=== PATIENT | female | born 1935 | race Caucasian/White ===

== ENCOUNTER 2019-01-23 15:33 | Inpatient (IN) ==
[2019-01-23] MEDS ORDERED: 0.9 % Sodium Chloride 1,000 ML IVC ONE (15:49)
--- NOTE | 2019-01-23 15:49 | Emergency Department Note ---
Disposition Clinical Impression: Delirium due to general medical condition Altered mental status Qualifiers: Altered mental status type: unspecified Qualified Code(s): R41.82 - Altered mental status, unspecified Disposition: Admitted As Inpatient Condition: Fair Referrals: Randall Pete MD [Primary Care Provider] - Forms: ED Satisfaction Letter Time of Disposition: 17:25 Altered Mental Status HPI - General Chief Complaint: ED Altered Mental Status Stated Complaint: ams Time Seen by Provider: 01/23/19 15:34 Source: patient, family Mode of arrival: EMS Limitations: no limitations Nursing Notes Reviewed: Yes Vital Signs Reviewed: Yes - History of Present Illness HPI Narrative: Patient is an 83-year-old female who is presenting with altered mental status. EMS with family members at bedside. Patient with known history of pacemaker secondary to bradycardia, hypertension, hyperlipidemia and neck pain. Patient was seen by primary care provider yesterday, was prescribed baclofen 10 mg secondary to neck strain and pain. Yesterday, patient took a half a tablet in the afternoon, was mentating appropriately, then called her daughter who recommended she take 1 further tablet. This is a total of 15 mg yesterday. Patient lives alone and was at home by herself overnight. Family member showed up at 8:00 this morning, and noted that the patient was very sleepy and somewhat confused. She had no focal weakness, numbness or tingling. No reported falls. She is on a blood thinner. Per her daughter, when she arrived around 1300, she became very concerned as the patient was very drowsy and confused. EMS was called to bring her to the ER for further evaluation. Patient currently denies any pain. No recent fevers or chills, cough or urinary symptoms. She denies any chills chest pain or shortness of breath. She denies any recent falls. Per family known was with her overnight. Patient has never been on this medication before. - Related Data Home Medications Medication Instructions Recorded Confirmed ALPRAZolam [Xanax 0.5 MG Tablet] 0.5 mg PO BID PRN 08/06/16 08/06/16 Diltiazem HCl [Cardizem Cd] 360 mg PO QAM 08/06/16 08/06/16 Gabapentin [Neurontin] 100 mg PO BID 08/06/16 08/06/16 Glimepiride [Amaryl] 1 mg PO QPM 08/06/16 08/06/16 Baclofen [Lioresal] 10 mg PO TID PRN 01/23/19 01/23/19 Citalopram Hydrobromide 10 mg PO DAILY 01/23/19 01/23/19 [Citalopram HBr] Folic Acid 0.8 mg PO DAILY 01/23/19 01/23/19 Losartan/Hydrochlorothiazide 1 each PO DAILY 01/23/19 01/23/19 [Losartan-Hctz 100-25 mg Tab] Lovastatin [Mevacor] 20 mg PO QPM 01/23/19 01/23/19 Rivaroxaban [Xarelto] 15 mg PO QPM 01/23/19 01/23/19 Allergies Allergy/AdvReac Type Severity Reaction Status Date / Time atenolol Allergy Rash Verified 10/23/18 10:11 Warfarin AdvReac Severe Weakness Verified 10/23/18 10:11 Review of Systems: In addition to that documented in the HPI above, the additional ROS was obtained: General: Denies fever. Denies chills. Denies weight loss. Denies behavioral change. Eyes: Denies visual changes. ENT: Denies nasal congestion. Denies sore throat. Denies hearing change. Cardio: Denies chest pain. Denies palpitations. Respiratory: Denies cough. Denies shortness of breath. Denies wheezing. GI: Denies nausea, Denies vomiting, or diarrhea. Denies hematochezia denies melena. Denies abdominal pain. : Denies dysuria, hematuria, or urinary retention MSK: Denies back pain. Denies joint swelling. Neuro: Affirms confusion.. Denies numbness or tingling. Denies focal weakness. Denies headache. Denies loss of consciousness. Psych: Denies mood changes. All systems ED: reviewed and negative except as stated. Review of Systems: As Per HPI Past Medical History - Past Medical History Attestation: Yes The following information was validated with the patient. Source: patient Medical history: Reports: hypertension Surgical history: Reports: cholecystectomy Psychiatric history: Reports: anxiety - Social History Smoking Status: Never smoker Smokeless Tobacco Status: No Alcohol use: Reports: none Drug use: Reports: none Physical Exam - General General appearance: alert, in no apparent distress - Head Head exam: atraumatic, normocephalic, normal inspection - Eye Eye exam: Present: normal appearance, PERRL, EOMI - ENT ENT exam: normal exam, normal oropharynx, mucous membranes moist - Neck Neck exam: Present: normal inspection, full ROM, trachea midline - Chest Chest inspection: Present: normal inspection, symmetric chest wall rise - Respiratory Respiratory exam: Present: normal lung sounds bilaterally - Cardiovascular Cardiovascular exam: Present: regular rate, normal rhythm, normal heart sounds - Abdominal Exam Abdominal exam: Present: soft, Non-Tender. Absent: tenderness, distention, guarding, rebound, rigidity - Extremities Exam Extremities exam: Present: normal inspection, full ROM. Absent: tenderness, pedal edema - Expanded Lower Extremity Exam Neurovascular/Tendon exam: Absent: motor deficit, sensory deficit, tendon deficit - Back Exam Back exam: Present: normal inspection, paraspinal tenderness. Absent: muscle spasm, vertebral tenderness, rashes - Expanded Neurological Exam Patient oriented to: Present: person, place. Absent: time Speech: Present: fluid speech Cranial nerves: EOM function (II, III, IV, ): Normal, facial sensation (V): Normal, facial palsy (VII): Normal, spinal accessory function (XI): Normal, tongue deviation (XII): Normal Cerebellar function: finger to nose: Normal Motor strength - LUE: 4/5 Motor strength - RUE: 4/5 Motor strength - LLE: 4/5 Motor strength - RLE: 4/5 Upper motor neuron exam: pronator drift: Absent bilaterally Sensory exam upper extremity: light touch: Normal Sensory exam lower extremity: light touch: Normal Coma Scale Eye Opening: Spontaneous Coma Scale Motor Response: Obeys Commands Coma Scale Verbal Response: Confused Coma Scale Total: 14 - Psychiatric Psychiatric exam: Present: other (Somewhat somnolent during the examination, but readily opens her eyes trend the conversation.) - Skin Skin exam: Present: warm Course Vital Signs Temperature 98.8 F 01/23/19 15:47 Pulse Rate 62 01/23/19 15:47 Respiratory Rate 18 01/23/19 15:47 Blood Pressure 153/60 01/23/19 15:47 O2 Sat by Pulse Oximetry 92 01/23/19 15:47 Temperature 98.8 F 01/23/19 15:47 Pulse Rate 68 01/23/19 17:40 Respiratory Rate 18 01/23/19 17:40 Blood Pressure 133/59 01/23/19 17:40 O2 Sat by Pulse Oximetry 97 01/23/19 17:40 Oxygen Delivery Oxygen Delivery Nasal Cannula Altered Mental Status - [facility] Narrative Medical decision making narrative: Patient is an 83-year-old female presenting with altered mental status. On examination, pt is alert and oriented 2 with a GCS of 14. Concern for medication axonal overdose with baclofen 15 mg. Patient is somewhat somnolent during examination, but is easily arousable and follows commands. Vitals are as mostly within normal limits, patient did become hypoxic on room air at 87%, on 2 L she went up to about 97%. She does not wear oxygen at home. Concern for intracranial etiology versus infection versus medication overdose. Last known well was greater than 18 hours ago, with no focal neurological changes, no focal weakness or numbness or tingling. Patient is not a TPA candidate. CBC, BMP as well as troponin and EKG and chest x-ray were performed. Urinalysis shows no acute infection. Chest x-ray appears stable and unchanged. CT of the head as well as the cervical spine showed no acute intracranial changes or sign of acute fracture. CBC is relatively unremarkable. Hemoglobin stable. BMP does show acute kidney injury with history of chronic kidney disease. She was given 1 L of fluids while here in the ER. Patient has otherwise had an unchanged neurological exam while here in the ER. Patient will be admitted for further observation and evaluation. Family agrees with disposition. Hospitalist has accepted the patient. - Medical Records Medical records reviewed: Yes I reviewed the patient's medical records. - Lab Data Lab results reviewed: Yes I reviewed the patient's lab results. Result diagrams: 01/23/19 16:30 01/23/19 16:30 Lab Results 01/23/19 01/23/19 01/23/19 Range/Units 16:30 16:30 16:30 WBC 11.9 H (4.3-11.1) K/mcL RBC 4.47 (3.82-4.97) M/mcL Hgb 13.6 (11.5-15.4) g/dL Hct 40.0 (35.3-44.9) % MCV 89.5 (83.0-100.0) fL MCH 30.4 (28.0-33.3) pg MCHC 34.0 (31.6-35.5) g/dL RDW 12.6 (11.5-14.5) % Plt Count 252 (140-400) K/mcL MPV 10.6 (9.4-12.4) fL Immature Gran % 0.5 (0-4) % Seg Neutrophils % 88.4 % Lymphocytes % 2.5 % Monocytes % 8.1 % Eosinophils % 0.3 % Basophils % 0.2 % Neutrophils # 10.5 H (1.6-8.9) K/mcL Lymphocytes # 0.3 L (0.6-4.6) K/mcL Monocytes # 1.0 (0.0-1.3) K/mcL Eosinophils # 0.0 (0.0-0.6) K/mcL Basophils # 0.0 (0.0-0.2) K/mcL Sodium 138 (136-145) mEq/L Potassium 3.1 L (3.5-5.1) mEq/L Chloride 102 (98-107) mEq/L Carbon Dioxide 26 (23-29) mEq/L BUN 37 H (8-23) mg/dL Creatinine 2.29 H (0.60-1.20) mg/dL Est GFR ( Amer) 25 L (> 60) Est GFR (Non-Af Amer) 20 L (> 60) BUN/Creatinine Ratio 16 (6-26) Glucose 201 H (70-105) mg/dL Calculated Osmolality 300 (280-300) Calcium 9.6 (8.6-10.3) mg/dL Total Bilirubin 0.8 (0.3-1.0) mg/dL Direct Bilirubin 0.3 H (0.0-0.2) mg/dL Indirect Bilirubin 0.5 (0.0-1.2) mg/dL AST 30 (13-39) Units/L ALT 27 (7-52) Units/L Alkaline Phosphatase 129 H (34-104) Units/L Troponin I < 0.03 (< 0.04) ng/mL Serum Total Protein 7.8 (6.4-8.9) g/dL Albumin 3.9 (3.5-5.7) g/dL Globulin 3.9 H (2.4-3.5) g/dL Albumin/Globulin Ratio 1.0 L (1.1-2.2) Urine Color Yellow (Yellow) Urine Clarity Clear (Clear) Urine pH 5.5 (5.0-8.0) pH Units Ur Specific [place] < 1.005 L (1.010-1.025) Urine Protein Trace (Neg-Trace) mg/dL Urine Glucose (UA) Normal (Normal) mg/dL Urine Ketones Negative (Negative) mg/dL Urine Blood Negative (Negative) Urine Nitrite Negative (Negative) Urine Bilirubin Negative (Negative) Urine Urobilinogen Normal (Normal) mg/dL Ur Leukocyte Esterase Negative (Negative) Ur Culture Indicated? NO (NO) Stool Occult Bld Scrn (Negative) 01/23/19 Range/Units 17:04 WBC (4.3-11.1) K/mcL RBC (3.82-4.97) M/mcL Hgb (11.5-15.4) g/dL Hct (35.3-44.9) % MCV (83.0-100.0) fL MCH (28.0-33.3) pg MCHC (31.6-35.5) g/dL RDW (11.5-14.5) % Plt Count (140-400) K/mcL MPV (9.4-12.4) fL Immature Gran % (0-4) % Seg Neutrophils % % Lymphocytes % % Monocytes % % Eosinophils % % Basophils % % Neutrophils # (1.6-8.9) K/mcL Lymphocytes # (0.6-4.6) K/mcL Monocytes # (0.0-1.3) K/mcL Eosinophils # (0.0-0.6) K/mcL Basophils # (0.0-0.2) K/mcL Sodium (136-145) mEq/L Potassium (3.5-5.1) mEq/L Chloride (98-107) mEq/L Carbon Dioxide (23-29) mEq/L BUN (8-23) mg/dL Creatinine (0.60-1.20) mg/dL Est GFR ( Amer) (> 60) Est GFR (Non-Af Amer) (> 60) BUN/Creatinine Ratio (6-26) Glucose (70-105) mg/dL Calculated Osmolality (280-300) Calcium (8.6-10.3) mg/dL Total Bilirubin (0.3-1.0) mg/dL Direct Bilirubin (0.0-0.2) mg/dL Indirect Bilirubin (0.0-1.2) mg/dL AST (13-39) Units/L ALT (7-52) Units/L Alkaline Phosphatase (34-104) Units/L Troponin I (< 0.04) ng/mL Serum Total Protein (6.4-8.9) g/dL Albumin (3.5-5.7) g/dL Globulin (2.4-3.5) g/dL Albumin/Globulin Ratio (1.1-2.2) Urine Color (Yellow) Urine Clarity (Clear) Urine pH (5.0-8.0) pH Units Ur Specific [place] (1.010-1.025) Urine Protein (Neg-Trace) mg/dL Urine Glucose (UA) (Normal) mg/dL Urine Ketones (Negative) mg/dL Urine Blood (Negative) Urine Nitrite (Negative) Urine Bilirubin (Negative) Urine Urobilinogen (Normal) mg/dL Ur Leukocyte Esterase (Negative) Ur Culture Indicated? (NO) Stool Occult Bld Scrn Negative (Negative) - Radiology Data Radiology results reviewed: Yes I reviewed the patient's radiology results. Chest X-Ray 01/23/19 15:49 IMPRESSION: No acute abnormality. D/ / Khalif Urbano MD / Khalif Urbano MD Interpreting Provider: Khalif Urbano MD Cervical Spine CT 01/23/19 15:50 IMPRESSION: No acute abnormality of the cervical spine. Degenerative changes. D/ / Yessica Madison MD / Yessica Madison MD Interpreting Provider: Yessica Madison MD Head CT 01/23/19 15:50 IMPRESSION: No acute intracranial abnormality. D/ / Yessica Madison MD / Yessica Madison MD Interpreting Provider: Yessica Madison MD - EKG Data EKG attestation: Yes I reviewed and interpreted this EKG. EKG results narrative: EKG performed at 6 and 25 with ventricular rate of 60, patient is ventricularly paced, without acute changes. TPA Checklist - LKW: 3-4.5 hrs Add. Warnings/Precautions Patient/family understanding: The patient/family members have been counseled and understood the risk, benefit, and alternatives of treatment.
--- NOTE | 2019-01-23 16:22 | Emergency Department Note ---
Disposition Clinical Impression: Delirium due to general medical condition, Altered mental status Disposition: Still a Patient Forms: ED Satisfaction Letter Time of Disposition: 16:24 General Adult HPI - General Chief complaint: ED Altered Mental Status Stated complaint: ams Time Seen by Provider: 01/23/19 15:34 Source: patient Limitations: no limitations Nursing Notes Reviewed: Yes Vital Signs Reviewed: Yes - History of Present Illness HPI Narrative: Attestation note: Patient was seen with the emergency medicine resident/nurse practitioner/physician behavioral assistant/transitional resident/medical student: Dr. COCO MONTOYA. I was present for the significant portions of the performance and interpretation of procedures and EKGs. I have personally performed a face to face evaluation on this patient. I have reviewed and agree with history and physical examination patient management and disposition. 83-year-old female had atraumatic pain, patient was prescribed baclofen for atraumatic neck pain. Patient is now awake and alert 2 family members she was getting increasing sleepy and slightly disoriented and altered here for further evaluation. Patient has been on iron but was a dark stool during our visit are evaluation being sent for fecal occult blood testing. Patient's no prior history of GI bleed. This been recent antibiotics no fevers or chills no trauma. Patient be worked up for altered mental status. INR differential is unintentional overdose of baclofen with the somnolence secondary to that. Patient can EKG screening labs head CT chest x-ray urinalysis admi ssion anticipated. Providing 30 minutes of critical care service for this patient. Disposition pending Pain Scale: 0 - Related Data Home Medications Medication Instructions Recorded Confirmed ALPRAZolam [Xanax 0.5 MG Tablet] 0.5 mg PO BID PRN 08/06/16 08/06/16 Acetaminophen [Tylenol] 650 mg PO Q6H PRN 08/06/16 08/06/16 Cholecalciferol (Vitamin D3) 5,000 unit PO QPM 08/06/16 08/06/16 [Vitamin D3] Diltiazem HCl [Cardizem Cd] 360 mg PO QAM 08/06/16 08/06/16 Ferrous Sulfate [Iron] 325 mg PO BID 08/06/16 08/06/16 Folic Acid 1 mg PO QAM 08/06/16 08/06/16 Gabapentin [Neurontin] 100 mg PO BID 08/06/16 08/06/16 Glimepiride [Amaryl] 1 mg PO QPM 08/06/16 08/06/16 Losartan/HCTZ [Hyzaar 50-12.5 1 tab PO QAM 08/06/16 08/06/16 Tablet] Lovastatin 10 mg PO HS 08/06/16 08/06/16 Polyethylene Glycol 3350 [MiraLAX] 17 gm PO QAM 08/06/16 08/06/16 Allergies Allergy/AdvReac Type Severity Reaction Status Date / Time atenolol Allergy Rash Verified 10/23/18 10:11 Warfarin AdvReac Severe Weakness Verified 10/23/18 10:11 Past Medical History - Past Medical History Medical history: Reports: hyperlipidemia, hypertension Surgical history: Reports: cholecystectomy Psychiatric history: Reports: anxiety - Social History Smoking Status: Never smoker Smokeless Tobacco Status: No Alcohol use: Reports: none Drug use: Reports: none Physical Exam - General Limitations: no limitations General appearance: in no apparent distress Course Vital Signs Temperature 98.8 F 01/23/19 15:47 Pulse Rate 62 01/23/19 15:47 Respiratory Rate 18 01/23/19 15:47 Blood Pressure 153/60 01/23/19 15:47 O2 Sat by Pulse Oximetry 92 01/23/19 15:47 Temperature 98.8 F 01/23/19 15:47 Pulse Rate 62 01/23/19 15:47 Respiratory Rate 18 01/23/19 15:47 Blood Pressure 153/60 01/23/19 15:47 O2 Sat by Pulse Oximetry 92 01/23/19 15:47 Oxygen Delivery Oxygen Delivery Room Air
[2019-01-23 17:04] LABS: Bilirubin,Urine Negative (Negative); Blood,Urine Negative (Negative); Clarity,Urine Clear (Clear); Color,Urine Yellow (Yellow); Glucose,Urine (UA) Normal (Normal); Ketones,Urine Negative (Negative); Leukocyte Esterase,Urine Negative (Negative); Nitrite,Urine Negative (Negative); PH,Urine 5.5 pH Units (5.0-8.0); Protein,Urine Trace mg/dL (Neg-Trace); Specific Gravity,Urine < 1.005 (1.010-1.025); Urobilinogen,Urine Normal (Normal)
[2019-01-23 17:08] LABS: Basophils % 0.2 %; Eosinophils % 0.3 %; Hemoglobin 13.6 g/dL (11.5-15.4); Immature Granulocytes % 0.5 % (0-4); Lymphocytes # 0.3 K/mcL (0.6-4.6); Lymphocytes % 2.5 %; Mean Corpuscular Hemoglobin 30.4 pg (28.0-33.3); Mean Corpuscular Volume 89.5 fL (83.0-100.0); Mean Platelet Volume 10.6 fL (9.4-12.4); Monocytes % 8.1 %; Neutrophils # 10.5 K/mcL (1.6-8.9); Platelet Count 252 K/mcL (140-400); Red Blood Count 4.47 M/mcL (3.82-4.97); Red Cell Distribution Width 12.6 % (11.5-14.5); Segmented Neutrophils % 88.4 %; White Blood Count 11.9 K/mcL (4.3-11.1)
[2019-01-23 17:32] LABS: Alanine Aminotransferase 27 Units/L (7-52); Albumin 3.9 g/dL (3.5-5.7); Alkaline Phosphatase 129 Units/L (34-104); Aspartate Amino Transferase 30 Units/L (13-39); BUN/Creatinine Ratio 16 (6-26); Bilirubin,Direct 0.3 mg/dL (0.0-0.2); Bilirubin,Indirect 0.5 mg/dL (0.0-1.2); Bilirubin,Total 0.8 mg/dL (0.3-1.0); Blood Urea Nitrogen 37 mg/dL (8-23); Calcium 9.6 mg/dL (8.6-10.3); Carbon Dioxide 26 mEq/L (23-29); Chloride 102 mEq/L (98-107); Globulin 3.9 g/dL (2.4-3.5); Glucose 201 mg/dL (70-105); Osmolality,Calculated 300 (280-300); Potassium 3.1 mEq/L (3.5-5.1); Sodium 138 mEq/L (136-145); Total Protein 7.8 g/dL (6.4-8.9); Troponin I < 0.03 ng/mL (< 0.04); eGFR For African Americans 25 (> 60); eGFR For Non-African Americans 20 (> 60)
[2019-01-23] MEDS ORDERED: Naloxone 0.4 MG/ML INJ IVP PRN (17:41)
--- NOTE | 2019-01-23 17:41 | Internal Med History&Physical ---
Date of Encounter: 01/23/19 Time of Encounter: 17:50 Internal Medicine - H&P: HPI Chief complaint: Increased somnolence Admitted From: Emergency Dept Plans for Post Hospital Care: Home History of present illness: Ms. Virk is a 83 year old female patient with history of diabetes, hypertension, chronic kidney disease stage III who was brought into the ER due to increased somnolence. She had been placed on baclofen recently due to neck spasm. She took this medication for couple of days. Her initial dose was half a tablet (10 mg tablet) the day before yesterday which she tolerated well. After that she took 1 full tablet yesterday after which she has been increasingly somnolent. She is still very somnolent today. She is difficult to awake. She is not able to provide much history and history has therefore been obtained by her granddaughter who is at her bedside. Patient has been otherwise healthy and at baseline is able to maintain conversation well. No other recent changes to medications. No diarrhea reported. No nausea or vomiting. Past Med Surg Social Fam HX - Past Medical History Medical history: hyperlipidemia, hypertension Additional medical history: RLS, neuropathy Psychiatric history: anxiety - Past Surgical History Surgical History: cholecystectomy Additional surgical history: ovary removed, mastectomy, sinus sx - Social History Smoking Status: Never smoker Smokeless Tobacco Status: No Alcohol use: none Drug use: none - Family History Mother Family Member Ethnicity: Non- Living Status: Hx Family Cardiac Disorders: Yes (received pacemaker) Father Family Member Ethnicity: Non- Living Status: Hx Family Cancer: Yes Hx Family GI Disorders: Yes Internal Medicine - H&P: Meds ALPRAZolam [Xanax 0.5 MG Tablet] 0.5 mg PO BID PRN 08/06/16 [History] Diltiazem HCl [Cardizem Cd] 360 mg PO QAM 08/06/16 [History] Gabapentin [Neurontin] 100 mg PO BID 08/06/16 [History] Glimepiride [Amaryl] 1 mg PO QPM 08/06/16 [History] Baclofen [Lioresal] 10 mg PO TID PRN 01/23/19 [History] Citalopram Hydrobromide [Citalopram HBr] 10 mg PO DAILY 01/23/19 [History] Folic Acid 0.8 mg PO DAILY 01/23/19 [History] Losartan/Hydrochlorothiazide [Losartan-Hctz 100-25 mg Tab] 1 each PO DAILY 01/23/19 [History] Lovastatin [Mevacor] 20 mg PO QPM 01/23/19 [History] Rivaroxaban [Xarelto] 15 mg PO QPM 01/23/19 [History] Allergy/AdvReac Type Severity Reaction Status Date / Time atenolol Allergy Rash Verified 10/23/18 10:11 Warfarin AdvReac Severe Weakness Verified 10/23/18 10:11 ROS unobtainable: due to mental status All Systems PM: A 10-system review of systems was performed and is negative for pertinent findings except as documented above in the HPI. - Constitutional Vitals: Temp Pulse Resp BP Pulse Ox 98.8 F 62 16 137/56 92 01/23/19 15:47 01/23/19 15:47 01/23/19 16:19 01/23/19 16:19 01/23/19 15:47 Exam: General: Patient is very somnolent Head: atraumatic, normocephalic, ENT: Mucous membranes moist Eye: normal appearance, PERRL, no scleral icterus, no conjunctival injection Neck: normal inspection, trachea midline, full ROM, no carotid bruits Chest: normal inspection, symmetric chest rise Respiratory: Good respiratory effort. Normal breath sounds. No wheezing or crackles. Cardiovascular: Regular rate and rhythm. s1 and s2 normal No clicks, rubs, gallops, or murmurs. No pedal edema Abdomen: Abdomen is soft, nontender. Bowel sounds are present Musculoskeletal: Spontaneously moving all extremities Skin: warm, dry, intact. Neuro: Unable to perform at this time due to patient's mental status Psych: Unable to assess at this time due to patient's mental status Internal Med - H&P Results - Labs CBC & Chem 7: 01/23/19 16:30 01/23/19 16:30 Labs: Short CBC 01/23/19 Range/Units 16:30 WBC 11.9 H (4.3-11.1) K/mcL Hgb 13.6 (11.5-15.4) g/dL Hct 40.0 (35.3-44.9) % Plt Count 252 (140-400) K/mcL Neutrophils # 10.5 H (1.6-8.9) K/mcL BMP 01/23/19 16:30 Sodium 138 Potassium 3.1 L Chloride 102 Carbon Dioxide 26 BUN 37 H Creatinine 2.29 H Glucose 201 H Calcium 9.6 Cardiac Enzymes 01/23/19 Range/Units 16:30 Troponin I < 0.03 (< 0.04) ng/mL Liver Function 01/23/19 Range/Units 16:30 Total Bilirubin 0.8 (0.3-1.0) mg/dL Direct Bilirubin 0.3 H (0.0-0.2) mg/dL AST 30 (13-39) Units/L ALT 27 (7-52) Units/L Alkaline Phosphatase 129 H (34-104) Units/L Albumin 3.9 (3.5-5.7) g/dL Urine 01/23/19 Range/Units 16:30 Urine Color Yellow (Yellow) Urine Clarity Clear (Clear) Urine pH 5.5 (5.0-8.0) pH Units Ur Specific [place] < 1.005 L (1.010-1.025) Urine Protein Trace (Neg-Trace) mg/dL Urine Glucose (UA) Normal (Normal) mg/dL - Impressions ITS Impressions Chest X-Ray 01/23/19 15:49 IMPRESSION: No acute abnormality. D/ / Khalif Urbano MD / Khalif Urbano MD Interpreting Provider: Khalif Urbano MD Cervical Spine CT 01/23/19 15:50 IMPRESSION: No acute abnormality of the cervical spine. Degenerative changes. D/ / Yessica Madison MD / Yessica Madison MD Interpreting Provider: Yessica Madison MD Head CT 01/23/19 15:50 IMPRESSION: No acute intracranial abnormality. D/ / Yessica Madison MD / Yessica Madison MD Interpreting Provider: Yessica Madison MD - Assessment and Plan (1) Acute metabolic encephalopathy Current Visit: Yes Status: Acute Assessment and plan: Most likely related to baclofen use. In setting of acute kidney injury. We will monitor overnight. IV hydration. Seizure/fall precautions. Patient is currently maintaining her sats and respiratory status. Moderate risk for complications. (2) Atrial fibrillation Current Visit: Yes Status: Chronic Assessment and plan: Rate controlled. Will resume Cardizem once patient is able to take her medi cations. Monitor with telemetry. Patient is on Xarelto for anticoagulation. CT of the head does not show any acute bleed Qualifiers: Atrial fibrillation type: chronic Qualified Code(s): I48.2 - Chronic atrial fibrillation (3) Diabetes mellitus Current Visit: Yes Status: Chronic Assessment and plan: monitor blood sugars. We will place patient on sliding scale insulin. Diabetic diet. Qualifiers: Diabetes mellitus type: type 2 Diabetes mellitus tank terminal gauger insulin use: without tank terminal gauger use Diabetes mellitus complication status: with kidney complications Diabetes mellitus complication detail: with chronic kidney disease Chronic kidney disease stage: stage 3 (moderate) Qualified Code(s): E11.22 - Type 2 diabetes mellitus with diabetic chronic kidney disease; N18.3 - Chronic kidney disease, stage 3 (moderate) (4) HTN (hypertension) Current Visit: Yes Status: Chronic Assessment and plan: Resume home medications. Monitor blood pressure closely Qualifiers: Hypertension type: essential hypertension Qualified Code(s): I10 - Essential (primary) hypertension (5) MADELAINE (acute kidney injury) Current Visit: Yes Status: Acute Assessment and plan: Acute kidney injury on chronic kidney disease stage III: Patient's baseline cre at[facility] hospit[facility] is between 1.2-1.3 per previous records. Currently it is 2.29. Will gently hydrate. Monitor renal function. - Time Spent With Patient Total time spent is greater than 50% in coordination of care (as documented) at patient's floor/unit and/or counseling patient:
[2019-01-23] MEDS ORDERED: D5% in Water 1,000 ML IVC PRN (18:13)
[2019-01-23] MEDS ORDERED: Dextrose Gel 15 GM/37.5 ML TUBE PO PRN ×2 (18:13)
[2019-01-23] MEDS ORDERED: *HR* Dextrose 50 % in Water (Syg) 50 ML SYRINGE IVP PRN (18:13)
[2019-01-23] MEDS: Insulin LISPRO 300 UNITS/3 ML VIAL SQ SCH (21:44)
[2019-01-23] MEDS: Ringers Solution, Lactated 1,000 ML IVC SCH (22:07)
[2019-01-24] MEDS: Insulin LISPRO 300 UNITS/3 ML VIAL SQ SCH ×4 (00:05→17:53)
[2019-01-24 04:12] LABS: Basophils % 0.2 %; Eosinophils # 0.1 K/mcL (0.0-0.6); Eosinophils % 0.7 %; Hematocrit 35.7 % (35.3-44.9); Immature Granulocytes % 0.4 % (0-4); Lymphocytes # 0.7 K/mcL (0.6-4.6); Lymphocytes % 7.8 %; Mean Corpuscular HGB Conc 33.6 g/dL (31.6-35.5); Mean Corpuscular Hemoglobin 29.9 pg (28.0-33.3); Mean Platelet Volume 10.6 fL (9.4-12.4); Monocytes # 0.9 K/mcL (0.0-1.3); Monocytes % 11.2 %; Neutrophils # 6.7 K/mcL (1.6-8.9); Platelet Count 202 K/mcL (140-400); Red Blood Count 4.01 M/mcL (3.82-4.97); Red Cell Distribution Width 12.5 % (11.5-14.5); Segmented Neutrophils % 79.7 %; White Blood Count 8.3 K/mcL (4.3-11.1)
[2019-01-24] MEDS: Acetaminophen 325 MG TABLET PO PRN (04:25)
[2019-01-24 04:30] LABS: Calcium 8.9 mg/dL (8.6-10.3); Potassium 3.1 mEq/L (3.5-5.1)
[2019-01-24] MEDS: Ringers Solution, Lactated 1,000 ML IVC SCH (10:03)
[2019-01-24] MEDS: Diltiazem CD (24hr) 180 MG CAPSULE PO SCH (10:04)
[2019-01-24] MEDS: Folic Acid 1 MG TABLET PO SCH (10:05)
--- NOTE | 2019-01-24 13:22 | Internal Med Progress Note ---
Hospitalist Progress Note - Encounter Date of Encounter: 01/24/19 Time of Encounter: 08:45 - Subjective Interval History: Patient is lying down in bed. Easily awakes. Answers questions appropriately. She continues to have neck pain mainly in the right. Associated with stiffness. Has been going on for about a week. Denies any headache. No fevers or chills noted. No nausea or vomiting. - Exam Vitals: Temp Pulse Resp BP Pulse Ox 98.7 F 61 16 127/78 96 01/24/19 12:11 01/24/19 12:11 01/24/19 12:11 01/24/19 12:11 01/24/19 12:11 Exam: General: Patient is alert, no acute distress, oriented x 3 Neck: Stiffness present on the right side. Respiratory: Good respiratory effort. Normal breath sounds. No wheezing or crackles. Cardiovascular: Regular rate and rhythm. s1 and s2 normal No clicks, rubs, gallops, or murmurs. No pedal edema Abdomen: Abdomen is soft, nontender. Bowel sounds are present Musculoskeletal: Spontaneously moving all extremities Skin: warm, dry, intact. Neuro: Alert oriented x 3 normal cranial nerves, no focal deficits - Assessment and Plan (1) Acute metabolic encephalopathy Current Visit: Yes Status: Acute (2) Atrial fibrillation Current Visit: Yes Status: Chronic (3) Diabetes mellitus Current Visit: Yes Status: Chronic (4) HTN (hypertension) Current Visit: Yes Status: Chronic (5) MADELAINE (acute kidney injury) Current Visit: Yes Status: Acute DVT Prophylaxis: Patient on Xarelto - Summary of Assessment and Plan Summary of Assessment and Plan: Acute metabolic encephalopathy: Due to baclofen use. Now resolved. Patient is back to her baseline. Continue to monitor. Cervicalgia: Most likely due to muscle spasm. Patient had increased somnolence with baclofen. Recommend warm compresses. Can also try Flexeril and see how patient responds to this. Diabetes mellitus type 2: Monitor blood sugars. Continue sliding scale insulin. Diabetic diet. Acute kidney injury on chronic kidney disease stage III: Creatinine improving. 1.81 today. Continue gentle IV hydration. Essential hypertension: Continue Cardizem. Holding losartan and hydrochlorothiazide due to acute kidney injury. Atrial fibrillation: Rate controlled. On anticoagulation with Xarelto. - Time Spent with Patient Total time spent is greater than 50% in coordination of care (as documented) at patient's floor/unit and/or counseling patient: Internal Medicine: Result - Labs CBC & Chem 7: 01/24/19 03:40 01/24/19 03:40 Labs: Short CBC 01/23/19 01/24/19 Range/Units 16:30 03:40 WBC 11.9 H 8.3 (4.3-11.1) K/mcL Hgb 13.6 12.0 D (11.5-15.4) g/dL Hct 40.0 35.7 (35.3-44.9) % Plt Count 252 202 (140-400) K/mcL Neutrophils # 10.5 H 6.7 (1.6-8.9) K/mcL BMP 01/23/19 01/24/19 16:30 03:40 Sodium 138 140 Potassium 3.1 L 3.1 L Chloride 102 108 H Carbon Dioxide 26 24 BUN 37 H 33 H Creatinine 2.29 H 1.81 H Glucose 201 H 125 H Calcium 9.6 8.9 Cardiac Enzymes 01/23/19 Range/Units 16:30 Troponin I < 0.03 (< 0.04) ng/mL Liver Function 01/23/19 Range/Units 16:30 Total Bilirubin 0.8 (0.3-1.0) mg/dL Direct Bilirubin 0.3 H (0.0-0.2) mg/dL AST 30 (13-39) Units/L ALT 27 (7-52) Units/L Alkaline Phosphatase 129 H (34-104) Units/L Albumin 3.9 (3.5-5.7) g/dL Urine 01/23/19 Range/Units 16:30 Urine Color Yellow (Yellow) Urine Clarity Clear (Clear) Urine pH 5.5 (5.0-8.0) pH Units Ur Specific [place] < 1.005 L (1.010-1.025) Urine Protein Trace (Neg-Trace) mg/dL Urine Glucose (UA) Normal (Normal) mg/dL - Impressions Impressions Chest X-Ray 01/23/19 15:49 IMPRESSION: No acute abnormality. D/ / Khalif Urbano MD / Khalif Urbano MD Interpreting Provider: Khalif Urbano MD Cervical Spine CT 01/23/19 15:50 IMPRESSION: No acute abnormality of the cervical spine. Degenerative changes. D/ / Yessica Madison MD / Yessica Madison MD Interpreting Provider: Yessica Madison MD Head CT 01/23/19 15:50 IMPRESSION: No acute intracranial abnormality. D/ / Yessica Madison MD / Yessica Madison MD Interpreting Provider: Yessica Madison MD Consult Discharge Plan - Plan Referrals: Randall Pete MD [Primary Care Provider] - (Appt has been requested. ) (2) Atrial fibrillation Qualifiers: Atrial fibrillation type: chronic Qualified Code(s): I48.2 - Chronic atrial fibrillation (3) Diabetes mellitus Qualifiers: Diabetes mellitus type: type 2 Diabetes mellitus senior care insulin use: without truck terminal manager use Diabetes mellitus complication status: with kidney complications Diabetes mellitus complication detail: with chronic kidney disease Chronic kidney disease stage: stage 3 (moderate) Qualified Code(s): E11.22 - Type 2 diabetes mellitus with diabetic chronic kidney disease; N18.3 - Chronic kidney disease, stage 3 (moderate) (4) HTN (hypertension) Qualifiers: Hypertension type: essential hypertension Qualified Code(s): I10 - Essential (primary) hypertension
[2019-01-24] MEDS ORDERED: ALPRAZolam 0.5 MG TABLET PO PRN (13:31)
[2019-01-24] MEDS: *HR* Rivaroxaban 15 MG TABLET PO SCH (18:01)
[2019-01-24] MEDS: Gabapentin 100 MG CAPSULE PO SCH (21:14)
[2019-01-25] MEDS: Insulin LISPRO 300 UNITS/3 ML VIAL SQ SCH ×5 (00:32→21:50)
[2019-01-25 03:31] LABS: Calcium 8.9 mg/dL (8.6-10.3)
[2019-01-25] MEDS: Diltiazem CD (24hr) 180 MG CAPSULE PO SCH (07:51)
[2019-01-25] MEDS: Folic Acid 1 MG TABLET PO SCH (07:51)
[2019-01-25] MEDS: Gabapentin 100 MG CAPSULE PO SCH ×2 (07:51→21:14)
--- NOTE | 2019-01-25 12:52 | Discharge Summary ---
- NOTES TO OUTPATIENT PROVIDER Notes to Outpatient Provider: Patient was hospitalized for acute metabolic encephalopathy most likely related to baclofen use. She been prescribed baclofen as outpatient due to neck pain and stiffness. This medication was stopped and patient has improved and is back to baseline. She is using cold compresses on her neck which is improving her symptoms. She did have acute kidney injury on presentation which has now resolved. She will be discharged home today. Date of Encounter: 01/25/19 Time of Encounter: 12:51 - Discharge Diagnosis (1) Acute metabolic encephalopathy Priority: Primary Status: Acute (2) Atrial fibrillation Priority: Secondary Status: Chronic Qualifiers: Atrial fibrillation type: chronic Qualified Code(s): I48.2 - Chronic atrial fibrillation (3) Diabetes mellitus Priority: Secondary Status: Chronic Qualifiers: Diabetes mellitus type: type 2 Diabetes mellitus custodial insulin use: without ad terminal makeup operator use Diabetes mellitus complication status: with kidney complications Diabetes mellitus complication detail: with chronic kidney disea se Chronic kidney disease stage: stage 3 (moderate) Qualified Code(s): E11.22 - Type 2 diabetes mellitus with diabetic chronic kidney disease; N18.3 - Chronic kidney disease, stage 3 (moderate) (4) HTN (hypertension) Priority: Secondary Status: Chronic Qualifiers: Hypertension type: essential hypertension Qualified Code(s): I10 - Essential (primary) hypertension (5) MADELAINE (acute kidney injury) Priority: Secondary Status: Acute Hospital course: Ms. Virk is a 83 year old female Patient was hospitalized for acute metabolic encephalopathy most likely related to baclofen use. She been prescribed baclofen as outpatient due to neck pain and stiffness. This medication was stopped and patient has improved and is back to baseline. She is using cold compresses on her neck which is improving her symptoms. She did have acute kidney injury on presentation which has now resolved. She will be discharged home today. Given that she is had generalized weakness at home, I would recommend home health for her enable her continued recovery. Discharge discussed with: patient - Time Spent with Patient Total time spent providing and/or coordinating discharge services: Time spent: Less than 30 minutes (28 min) - Discharge Medications Prescriptions: Continued Glimepiride [Amaryl] 1 mg PO DAILY Gabapentin [Neurontin] 100 mg PO BID Diltiazem HCl [Cardizem Cd] 360 mg PO DAILY ALPRAZolam [Xanax 0.5 MG Tablet] 0.5 mg PO BID PRN PRN Reason: Anxiety Citalopram Hydrobromide [Citalopram HBr] 10 mg PO DAILY Folic Acid 0.8 mg PO DAILY Losartan/Hydrochlorothiazide [Losartan-Hctz 100-25 mg Tab] 1 each PO DAILY Lovastatin [Mevacor] 20 mg PO QPM Rivaroxaban [Xarelto] 15 mg PO QPM Discontinued Baclofen [Lioresal] 10 mg PO TID PRN PRN Reason: Muscle Spasm Home Medications: ALPRAZolam [Xanax 0.5 MG Tablet] 0.5 mg PO BID PRN 08/06/16 [History] Diltiazem HCl [Cardizem Cd] 360 mg PO DAILY 08/06/16 [History] Gabapentin [Neurontin] 100 mg PO BID 08/06/16 [History] Glimepiride [Amaryl] 1 mg PO DAILY 08/06/16 [History] Citalopram Hydrobromide [Citalopram HBr] 10 mg PO DAILY 01/23/19 [History] Folic Acid 0.8 mg PO DAILY 01/23/19 [History] Losartan/Hydrochlorothiazide [Losartan-Hctz 100-25 mg Tab] 1 each PO DAILY 01/23/19 [History] Lovastatin [Mevacor] 20 mg PO QPM 01/23/19 [History] Rivaroxaban [Xarelto] 15 mg PO QPM 01/23/19 [History] Allergies/Adverse Reactions: Allergy/AdvReac Type Severity Reaction Status Date / Time atenolol Allergy Rash Verified 10/23/18 10:11 Warfarin AdvReac Severe Weakness Verified 10/23/18 10:11 Date of admission: 01/23/19 18:47 Primary care physician: Randall Pete MD Discharging clinician: Bisi Dowell Anticipated date of discharge: 01/25/19 - Constitutional Vitals: Temp Pulse Resp BP Pulse Ox 98.3 F 53 16 151/71 93 01/25/19 11:34 01/25/19 11:34 01/25/19 11:34 01/25/19 11:34 01/25/19 11:34 Exam: General: Patient is alert, no acute distress, oriented x 3 Neck: No numbness pain today. Able to turn her head around with minimal discomfort. Respiratory: Good respiratory effort. Normal breath sounds. No wheezing or crackles. Cardiovascular: Regular rate and rhythm. s1 and s2 normal No clicks, rubs, gallops, or murmurs. No pedal edema Abdomen: Abdomen is soft, nontender. Bowel sounds are present Musculoskeletal: Spontaneously moving all extremities Skin: warm, dry, intact. Neuro: Alert oriented x 3 normal cranial nerves, no focal deficits - Patient Status Disposition: Home Health Service Condition: Good Functional capacity at discharge: independent ambulation Overall status at discharge: patient is progressing back to baseline - Discharge Instructions Instructions: Atrial Fibrillation (DC) Follow Up With: Randall Pete MD [Primary Care Provider] - (Appt has been requested. ) - Diet and Activity Activity: increase activity as tolerated Diet: diabetic diet, low fat, low cholesterol, low salt diet
--- NOTE | 2019-01-25 13:21 | Physician Discharge Referral ---
Home Health/Hosp Referral Info Transfer to: Home Health Provider in Charge Post Discharge: PCP - Diagnosis (1) Acute metabolic encephalopathy Priority: Primary Status: Acute (2) Atrial fibrillation Priority: Secondary Status: Chronic (3) Diabetes mellitus Priority: Secondary Status: Chronic (4) HTN (hypertension) Priority: Secondary Status: Chronic (5) MADELAINE (acute kidney injury) Priority: Secondary Status: Acute - Respiratory Orders Smoking Cessation: Smoking cessation has been advised. For more information, call the [place] Tobacco Quit Line at 8-656-PEEP-NOW. - Diet/Nutrition Diet/Nutrition Orders: Cardiac - Activity Activity Orders: Walker - Services Needed Following services are medically necessary services: Nursing, Home Health Aide, Physical Therapy, Occupational Therapy - Transfer Medications Home Medications: ALPRAZolam [Xanax 0.5 MG Tablet] 0.5 mg PO BID PRN 08/06/16 [History] Diltiazem HCl [Cardizem Cd] 360 mg PO DAILY 08/06/16 [History] Gabapentin [Neurontin] 100 mg PO BID 08/06/16 [History] Glimepiride [Amaryl] 1 mg PO DAILY 08/06/16 [History] Citalopram Hydrobromide [Citalopram HBr] 10 mg PO DAILY 01/23/19 [History] Folic Acid 0.8 mg PO DAILY 01/23/19 [History] Losartan/Hydrochlorothiazide [Losartan-Hctz 100-25 mg Tab] 1 each PO DAILY 01/23/19 [History] Lovastatin [Mevacor] 20 mg PO QPM 01/23/19 [History] Rivaroxaban [Xarelto] 15 mg PO QPM 01/23/19 [History] Allergies/Adverse Reactions: Allergy/AdvReac Type Severity Reaction Status Date / Time atenolol Allergy Rash Verified 10/23/18 10:11 Warfarin AdvReac Severe Weakness Verified 10/23/18 10:11 Certification: Further, I certify that my clinical findings support that this patient is homebound (i.e. absences from home require considerable and taxing effort and are for medical reasons or baptism services or infrequently or short duration when for other reasons) because: Homebound Reason: Patient requires assistance of a person or device to safely leave home Attestation: My signature below is to certify that this patient is under my care and that I, or nurse practitioner, or a physician's sales and marketing assistant working with me, has a [id number] encounter with this patient.
--- NOTE | 2019-01-25 13:42 | Event Note ---
Date of Encounter: 01/25/19 Time of Encounter: 13:41 Discharge held today as nursing staff reports that the patient is 2 person assist and lives alone at home. Most likely this is because patient has been lying down in bed for 3 days now. We will consult physical therapy to evaluate.
[2019-01-25] MEDS: *HR* Rivaroxaban 15 MG TABLET PO SCH (16:56)
[2019-01-26 07:37] LABS: BUN/Creatinine Ratio 23 (6-26); Blood Urea Nitrogen 24 mg/dL (8-23); Carbon Dioxide 26 mEq/L (23-29); Chloride 102 mEq/L (98-107); Glucose 131 mg/dL (70-105); Osmolality,Calculated 294 (280-300); Potassium 3.2 mEq/L (3.5-5.1); Sodium 139 mEq/L (136-145); eGFR For African Americans > 60 (> 60); eGFR For Non-African Americans 51 (> 60)
[2019-01-26] MEDS: Gabapentin 100 MG CAPSULE PO SCH ×2 (09:08→20:29)
[2019-01-26] MEDS: Folic Acid 1 MG TABLET PO SCH (09:08)
[2019-01-26] MEDS: Diltiazem CD (24hr) 180 MG CAPSULE PO SCH (09:08)
[2019-01-26] MEDS: Acetaminophen 325 MG TABLET PO PRN ×2 (09:08→15:15)
[2019-01-26] MEDS: Insulin LISPRO 300 UNITS/3 ML VIAL SQ SCH ×4 (09:09→21:00)
[2019-01-26] MEDS ORDERED: Potassium Effervescent 25 MEQ TABLET.EFF PO ONE (15:17)
--- NOTE | 2019-01-26 15:24 | Internal Med Progress Note ---
Hospitalist Progress Note - Encounter Date of Encounter: 01/26/19 Time of Encounter: 15:16 - Subjective Interval History: Patient was seen earlier today. She is doing much better overall. Is awake and alert. Complaints of neck injury radiating into her head but not as severe as before. She is able to turn her neck better. She stills feels very weak overall. Tolerating diet well. - Exam Vitals: Temp Pulse Resp BP Pulse Ox 98.1 F 52 18 120/65 92 01/26/19 11:43 01/26/19 11:43 01/26/19 11:43 01/26/19 11:43 01/26/19 11:43 Exam: General: Patient is alert, no acute distress, oriented x 3 Neck: Improved range of motion. No tenderness to palpation. Respiratory: Good respiratory effort. Normal breath sounds. No wheezing or crackles. Cardiovascular: Regular rate and rhythm. s1 and s2 normal No clicks, rubs, gallops, or murmurs. No pedal edema Abdomen: Abdomen is soft, nontender. Bowel sounds are present Musculoskeletal: Spontaneously moving all extremities Skin: warm, dry, intact. Neuro: Alert oriented x 3 normal cranial nerves, no focal deficits - Assessment and Plan (1) Acute metabolic encephalopathy Current Visit: Yes Status: Acute Assessment and Plan: Toxic metabolic encephalopathy (2) Atrial fibrillation Current Visit: Yes Status: Chronic (3) Diabetes mellitus Current Visit: Yes Status: Chronic (4) HTN (hypertension) Current Visit: Yes Status: Chronic (5) MADELAINE (acute kidney injury) Current Visit: Yes Status: Acute DVT Prophylaxis: Patient on Xarelto - Summary of Assessment and Plan Summary of Assessment and Plan: Acute toxic metabolic encephalopathy: Due to baclofen use and acute kidney injury. This has resolved. Cervicalgia: Improving. Continue cold compresses. Tylenol as needed. Hypokalemia: We will continue repletion. Diabetes mellitus type 2: Continue current insulin regimen. Diabetic diet. Acute kidney injury on chronic kidney disease stage III: Resolved. Essential hypertension: Blood pressure remains well controlled. Okay to resume losartan and hydrochlorothiazide tomorrow. Atrial fibrillation: Rate controlled. Continue Xarelto for anticoagulation. Generalized weakness: Patient has been evaluated by physical therapy and recommended placement to skilled rehabilitation. - Time Spent with Patient Total time spent is greater than 50% in coordination of care (as documented) at patient's floor/unit and/or counseling patient: Internal Medicine: Result - Labs CBC & Chem 7: 01/24/19 03:40 01/26/19 06:13 Labs: BMP 01/26/19 06:13 Sodium 139 Potassium 3.2 L Chloride 102 Carbon Dioxide 26 BUN 24 H Creatinine 1.03 Glucose 131 H Calcium 9.0 Consult Discharge Plan - Plan Instructions: Atrial Fibrillation (DC) Referrals: Randall Pete MD [Primary Care Provider] - 02/02/19 3:00 pm () __ (2) Atrial fibrillation Qualifiers: Atrial fibrillation type: chronic Qualified Code(s): I48.2 - Chronic atrial fibrillation (3) Diabetes mellitus Qualifiers: Diabetes mellitus type: type 2 Diabetes mellitus rn long term care insulin use: without snf use Diabetes mellitus complication status: with kidney complications Diabetes mellitus complication detail: with chronic kidney disease Chronic kidney disease stage: stage 3 (moderate) Qualified Code(s): E11.22 - Type 2 diabetes mellitus with diabetic chronic kidney disease; N18.3 - Chronic kidney disease, stage 3 (moderate) (4) HTN (hypertension) Qualifiers: Hypertension type: essential hypertension Qualified Code(s): I10 - Essential (primary) hypertension
[2019-01-26] MEDS: *HR* Rivaroxaban 15 MG TABLET PO SCH (17:13)
[2019-01-27 02:26] LABS: BUN/Creatinine Ratio 24 (6-26); Blood Urea Nitrogen 23 mg/dL (8-23); Calcium 8.7 mg/dL (8.6-10.3); Carbon Dioxide 25 mEq/L (23-29); Chloride 101 mEq/L (98-107); Glucose 109 mg/dL (70-105); Osmolality,Calculated 284 (280-300); Potassium 3.6 mEq/L (3.5-5.1); Sodium 135 mEq/L (136-145); eGFR For African Americans > 60 (> 60); eGFR For Non-African Americans 56 (> 60)
[2019-01-27] MEDS: Gabapentin 100 MG CAPSULE PO SCH ×2 (10:15→19:40)
[2019-01-27] MEDS: Folic Acid 1 MG TABLET PO SCH (10:15)
[2019-01-27] MEDS: Diltiazem CD (24hr) 180 MG CAPSULE PO SCH (10:15)
[2019-01-27] MEDS: Insulin LISPRO 300 UNITS/3 ML VIAL SQ SCH ×4 (10:15→21:28)
--- NOTE | 2019-01-27 12:40 | Electrocardiograph Report ---
[address] [place] [address] Test Date: 2019-01-23 Pat Name: Winifred Virk Department: EXAM8 Room: 3B21 Gender: F Edi Programmer: : 1935 Requested By: Chidi Kearney Order Number: [id number] Reading MD: Cynthia Morillo Measurements Intervals [place] Rate: 60 P: 0 DE: 71 QRS: -81 QRSD: 156 T: 102 QT: 496 QTc: 496 Interpretive Statements Ventricular-paced rhythm No further analysis attempted due to paced rhythm Electronically Signed On 01-27-2019 12:38:25 EDT by Cynthia Morillo
--- NOTE | 2019-01-27 13:29 | Internal Med Progress Note ---
Hospitalist Progress Note - Encounter Date of Encounter: 01/27/19 Time of Encounter: 09:15 - Subjective Interval History: Patient is lying down in bed. Comfortable. Denies any new complaints at this time. Tolerating oral diet well. Neck stiffness and pain has significantly improved - Exam Vitals: Temp Pulse Resp BP Pulse Ox 98.3 F 59 13 146/74 98 01/27/19 11:24 01/27/19 11:24 01/27/19 11:24 01/27/19 11:24 01/27/19 11:24 Exam: General: Patient is alert, no acute distress, oriented x 3 ENT: Mucous membranes moist Respiratory: Diminished breath sounds at both bases Cardiovascular: Regular rate and rhythm. s1 and s2 normal No clicks, rubs, gallops, or murmurs. No pedal edema Abdomen: Abdomen is soft, nontender. Bowel sounds are present Musculoskeletal: Spontaneously moving all extremities Skin: warm, dry, intact. Neuro: Alert oriented x 3 normal cranial nerves, no focal deficits - Assessment and Plan (1) Acute metabolic encephalopathy Current Visit: Yes Status: Acute (2) Atrial fibrillation Current Visit: Yes Status: Chronic (3) Diabetes mellitus Current Visit: Yes Status: Chronic (4) HTN (hypertension) Current Visit: Yes Status: Chronic (5) MADELAINE (acute kidney injury) Current Visit: Yes Status: Acute DVT Prophylaxis: Patient on Xarelto - Summary of Assessment and Plan Summary of Assessment and Plan: Acute toxic metabolic encephalopathy: Due to baclofen use and acute kidney injury. This has resolved. Cervicalgia: Improving with conservative management. Hypokalemia: Now resolved Diabetes mellitus type 2: We will increase sliding scale to medium correctional dosing Acute kidney injury on chronic kidney disease stage III: Resolved. Essential hypertension: We will resume losartan. Hold hydrochlorothiazide given her mild hyponatremia.. Atrial fibrillation: Rate controlled. Continue Xarelto for anticoagulation. Generalized weakness: Awaiting placement to skilled rehabilitation tomorrow. - Time Spent with Patient Total time spent is greater than 50% in coordination of care (as documented) at patient's floor/unit and/or counseling patient: Internal Medicine: Result - Labs CBC & Chem 7: 01/24/19 03:40 01/27/19 01:43 Labs: BMP 01/27/19 01:43 Sodium 135 L Potassium 3.6 Chloride 101 Carbon Dioxide 25 BUN 23 Creatinine 0.95 Glucose 109 H Calcium 8.7 Consult Discharge Plan - Plan Instructions: Atrial Fibrillation (DC) Referrals: Randall Pete MD [Primary Care Provider] - 02/02/19 3:00 pm () __ (2) Atrial fibrillation Qualifiers: Atrial fibrillation type: chronic Qualified Code(s): I48.2 - Chronic atrial fibrillation (3) Diabetes mellitus Qualifiers: Diabetes mellitus type: type 2 Diabetes mellitus correction insulin use: without remote computer terminal operator use Diabetes mellitus complication status: with kidney complications Diabetes mellitus complication detail: with chronic kidney disease Chronic kidney disease stage: stage 3 (moderate) Qualified Code(s): E11.22 - Type 2 diabetes mellitus with diabetic chronic kidney disease; N18.3 - Chronic kidney disease, stage 3 (moderate) (4) HTN (hypertension) Qualifiers: Hypertension type: essential hypertension Qualified Code(s): I10 - Essential (primary) hypertension
[2019-01-27] MEDS: Acetaminophen 325 MG TABLET PO PRN (17:37)
[2019-01-27] MEDS: *HR* Rivaroxaban 15 MG TABLET PO SCH (17:37)
[2019-01-28] MEDS: Acetaminophen 325 MG TABLET PO PRN (03:29)
[2019-01-28] MEDS: Insulin LISPRO 300 UNITS/3 ML VIAL SQ SCH ×2 (08:12→12:00)
[2019-01-28] MEDS: Diltiazem CD (24hr) 180 MG CAPSULE PO SCH (09:11)
[2019-01-28] MEDS: Folic Acid 1 MG TABLET PO SCH (09:16)
[2019-01-28] MEDS: Gabapentin 100 MG CAPSULE PO SCH (09:16)
[2019-01-28 11:14] VITALS: BP 148/70
--- NOTE | 2019-01-28 13:21 | Discharge Summary ---
- NOTES TO OUTPATIENT PROVIDER Notes to Outpatient Provider: Patient was hospitalized for acute metabolic encephalopathy most likely related to baclofen use. She been prescribed baclofen as outpatient due to neck pain and stiffness. This medication was stopped and patient has improved and is back to baseline. She is using cold compresses on her neck which is improving her symptoms. She did have acute kidney injury on presentation which has now resolved. She will be discharged to SNF today Date of Encounter: 01/28/19 Time of Encounter: 13:19 Hospital course: Ms. Virk is a 83 year old female who was hospitalized for acute metabolic encephalopathy most likely related to baclofen use. She been prescribed baclofen as outpatient due to neck pain and stiffness. This medication was stopped and patient has improved and is back to baseline. She is using cold compresses on her neck which is improving her symptoms. She did have acute kidney injury on presentation which has now resolved. She will be discharged to SNF today. (1) Acute metabolic encephalopathy, resolved Priority: Primary Status: Acute (2) Atrial fibrillation, rate controlled with cardiazem Priority: Secondary Status: Chronic Qualifiers: Atrial fibrillation type: chronic Qualified Code(s): I48.2 - Chronic atrial fibrillation (3) Diabetes mellitus Priority: Secondary Status: Chronic Qualifiers: Diabetes mellitus type: type 2 Diabetes mellitus longterm insulin use: without watermelon inspector use Diabetes mellitus complication status: with kidney complications Diabetes mellitus complication detail: with chronic kidney disease Chronic kidney disease stage: stage 3 (moderate) Qualified Code(s): E11.22 - Type 2 diabetes mellitus with diabetic chronic kidney disease; N18.3 - Chronic kidney disease, stage 3 (moderate) (4) HTN (hypertension) Priority: Secondary Status: Chronic Qualifiers: Hypertension type: essential hypertension Qualified Code(s): I10 - Essential (primary) hypertension (5) MADELAINE (acute kidney injury) Cr was 2.29, resolved Cr is 0.95 at discharge Priority: Secondary Status: Acute Discharge discussed with: patient Time spent discussing smoking cessation with patient: 3 to 10 minutes - Time Spent with Patient Total time spent providing and/or coordinating discharge services: Time spent: Less than 30 minutes - Discharge Medications Prescriptions: Continued Glimepiride [Amaryl] 1 mg PO DAILY Gabapentin [Neurontin] 100 mg PO BID Diltiazem HCl [Cardizem Cd] 360 mg PO DAILY ALPRAZolam [Xanax 0.5 MG Tablet] 0.5 mg PO BID PRN PRN Reason: Anxiety Citalopram Hydrobromide [Citalopram HBr] 10 mg PO DAILY Folic Acid 0.8 mg PO DAILY Losartan/Hydrochlorothiazide [Losartan-Hctz 100-25 mg Tab] 1 each PO DAILY Lovastatin [Mevacor] 20 mg PO QPM Rivaroxaban [Xarelto] 15 mg PO QPM Discontinued Baclofen [Lioresal] 10 mg PO TID PRN PRN Reason: Muscle Spasm Home Medications: ALPRAZolam [Xanax 0.5 MG Tablet] 0.5 mg PO BID PRN 08/06/16 [History] Diltiazem HCl [Cardizem Cd] 360 mg PO DAILY 08/06/16 [History] Gabapentin [Neurontin] 100 mg PO BID 08/06/16 [History] Glimepiride [Amaryl] 1 mg PO DAILY 08/06/16 [History] Citalopram Hydrobromide [Citalopram HBr] 10 mg PO DAILY 01/23/19 [History] Folic Acid 0.8 mg PO DAILY 01/23/19 [History] Losartan/Hydrochlorothiazide [Losartan-Hctz 100-25 mg Tab] 1 each PO DAILY 01/23/19 [History] Lovastatin [Mevacor] 20 mg PO QPM 01/23/19 [History] Rivaroxaban [Xarelto] 15 mg PO QPM 01/23/19 [History] Allergies/Adverse Reactions: Allergy/AdvReac Type Severity Reaction Status Date / Time atenolol Allergy Rash Verified 10/23/18 10:11 Warfarin AdvReac Severe Weakness Verified 10/23/18 10:11 Date of admission: 01/25/19 22:12 Primary care physician: Randall Pete MD Consults: 01/25/19 13:37 Consult to Occupational Therapy [CONS] Routine Comment: Evaluate, develop and implement POC Reason for Consult: Gen weakness Does patient have active BEDREST order?: No Is patient medically & hemodynamically stable?: Yes Consult to Physical Therapy [CONS] Routine Comment: Evaluate, develop and implement POC Reason for Consult: Gen weakness Does patient have active BEDREST order?: No Is patient medically & hemodynamically stable?: Yes 01/27/19 07:54 Consult to Radiologic Technician [CONS] Routine Reason for SW Consult: PT/OT RECOMMEND SNF. REFERRAL MADE TO TRADITIONS - Constitutional Vitals: Temp Pulse Resp BP Pulse Ox 98.6 F 57 16 148/70 92 01/28/19 11:13 01/28/19 11:13 01/28/19 11:13 01/28/19 11:13 01/28/19 11:13 General appearance: Present: A&O X 3, pleasant Exam: General: Patient is alert, no acute distress, oriented x 3 ENT: Mucous membranes moist Respiratory: Diminished breath sounds at both bases Cardiovascular: Regular rate and rhythm. s1 and s2 normal No clicks, rubs, gallops, or murmurs. No pedal edema Abdomen: Abdomen is soft, nontender. Bowel sounds are present Musculoskeletal: Spontaneously moving all extremities Skin: warm, dry, intact. Neuro: Alert oriented x 3 normal cranial nerves, no focal deficits - Patient Status Disposition: Transfer SNF Condition: Good Overall status at discharge: patient is not back to baseline - Discharge Instructions Instructions: Atrial Fibrillation (DC) Follow Up With: Randall Pete MD [Primary Care Provider] - 02/02/19 3:00 pm () - Diet and Activity Activity: as per physical therapy
--- NOTE | 2019-01-28 13:28 | Physician Discharge Referral ---
ExtendedCare Referral Info Transfer To: SNF Provider in Charge after Transfer: PCP Institutional Level of Care: Skilled - Transfer Medications Home Medications: ALPRAZolam [Xanax 0.5 MG Tablet] 0.5 mg PO BID PRN 08/06/16 [History] Diltiazem HCl [Cardizem Cd] 360 mg PO DAILY 08/06/16 [History] Gabapentin [Neurontin] 100 mg PO BID 08/06/16 [History] Glimepiride [Amaryl] 1 mg PO DAILY 08/06/16 [History] Citalopram Hydrobromide [Citalopram HBr] 10 mg PO DAILY 01/23/19 [History] Folic Acid 0.8 mg PO DAILY 01/23/19 [History] Losartan/Hydrochlorothiazide [Losartan-Hctz 100-25 mg Tab] 1 each PO DAILY 01/23/19 [History] Lovastatin [Mevacor] 20 mg PO QPM 01/23/19 [History] Rivaroxaban [Xarelto] 15 mg PO QPM 01/23/19 [History] Allergies/Adverse Reactions: Allergy/AdvReac Type Severity Reaction Status Date / Time atenolol Allergy Rash Verified 10/23/18 10:11 Warfarin AdvReac Severe Weakness Verified 10/23/18 10:11 - Respiratory Orders Smoking Cessation: Smoking cessation has been advised. For more information, call the [place] Tobacco Quit Line at 1-199-PCJG-NOW. CERTIFICATION: I certify that the transfer of the above named patient to an Extended Care Facility is necessary for the continuing treatment of the diagnosis listed. The above information is true and accurate reflection of patient's current condition. Confidential - Redisclosure prohibited without a patient's written consent.
== END 2019-01-28 15:37 | DRG 917 ==
LOC: EMEROOARM 15:33 → 3BNU 15:33 → SUATTDRO 01-25 22:12
PROVIDERS: ADMIT Internal Medicine Nephrology; ATTEND Hospitalist

== ENCOUNTER 2021-11-05 10:36 | Inpatient (IN) ==
[2021-11-05 11:37] LABS: Hematocrit 26.9 % (35.3-44.9); Mean Corpuscular HGB Conc 33.1 g/dL (31.6-35.5); Mean Corpuscular Volume 87.6 fL (83.0-100.0); Mean Platelet Volume 10.1 fL (9.4-12.4); Platelet Count 231 K/mcL (140-400); Red Blood Count 3.07 M/mcL (3.82-4.97); Red Cell Distribution Width 13.4 % (11.5-14.5); White Blood Count 9.8 K/mcL (4.3-11.1)
[2021-11-05 11:46] LABS: Hemoglobin 8.9 g/dL (11.5-15.4)
[2021-11-05 11:59] LABS: Calcium 8.4 mg/dL (8.6-10.3); Potassium 3.9 mEq/L (3.5-5.1)
[2021-11-05 12:07] LABS: Troponin I 0.05 ng/mL (< 0.04)
[2021-11-05 13:03] LABS: Bacteria,Urine Few per hpf (None-Few); Bilirubin,Urine Negative (Negative); Blood,Urine Negative (Negative); Clarity,Urine Turbid (Clear); Color,Urine Yellow (Yellow); Glucose,Urine (UA) Normal (Normal); Hyaline Casts,Urine Few per lpf (None Seen); Ketones,Urine Negative (Negative); Leukocyte Esterase,Urine Large (Negative); Mucus,Urine Few per lpf (None-Few); Nitrite,Urine Negative (Negative); Protein,Urine 30 mg/dL (Neg-Trace); RBC,Urine 0-3 per hpf (0-3); Specific Gravity,Urine 1.024 (1.010-1.025); Squamous Epithelial Cell,Urine Moderate per hpf (None-Few); Urobilinogen,Urine Normal (Normal); WBC,Urine 50-100 per hpf (0-3)
[2021-11-05] MEDS ORDERED: Ondansetron 4 MG/2 ML VIAL IVP PRN (14:09)
[2021-11-05] MEDS ORDERED: Naloxone 0.4 MG/ML INJ IVP PRN (14:09)
[2021-11-05] MEDS ORDERED: Perflutren Lipid Microsphere 1.3 ML in 0.9 % Sodium Chloride 8.7 ML IVP PRN (14:12)
[2021-11-05 14:28] LABS: Magnesium 1.9 mg/dL (1.6-2.6)
[2021-11-05 14:32] LABS: INR 1.4; Prothrombin Time 15.6 Seconds (9.4-12.1)
[2021-11-05 14:34] LABS: Activated Partial Thrombo Time 24.5 Seconds (26.0-36.0)
[2021-11-05] MEDS ORDERED: *HR* Dextrose 50 % in Water (Syg) 50 ML SYRINGE IVP PRN (14:34)
[2021-11-05] MEDS ORDERED: Dextrose 4 GM Chewable Tablets PO PRN ×2 (14:34)
[2021-11-05] MEDS ORDERED: D5% in Water 1,000 ML IVC PRN (14:34)
[2021-11-05 14:54] LABS: Estimated Average Glucose 123 mg/dl; Hemoglobin A1C 5.9 %
[2021-11-05 16:21] LABS: Folate > 22.3 ng/mL (3.0-16.0); Vitamin B12 979 pg/mL (250-1100)
[2021-11-05] MEDS: Insulin LISPRO 300 UNITS/3 ML VIAL SUBQ SCH ×2 (17:07→20:32)
[2021-11-05] MEDS: Acetaminophen 325 MG TABLET PO PRN (17:22)
[2021-11-06 00:37] LABS: Basophils % 0.2 %; Eosinophils # 0.1 K/mcL (0.0-0.6); Eosinophils % 1.1 %; Hematocrit 25.6 % (35.3-44.9); Hemoglobin 8.4 g/dL (11.5-15.4); Immature Granulocytes % 0.8 % (0-4); Lymphocytes # 1.1 K/mcL (0.6-4.6); Lymphocytes % 10.6 %; Mean Corpuscular HGB Conc 32.8 g/dL (31.6-35.5); Mean Corpuscular Hemoglobin 28.3 pg (28.0-33.3); Mean Corpuscular Volume 86.2 fL (83.0-100.0); Mean Platelet Volume 9.7 fL (9.4-12.4); Monocytes # 1.2 K/mcL (0.0-1.3); Monocytes % 11.3 %; Neutrophils # 7.8 K/mcL (1.6-8.9); Platelet Count 231 K/mcL (140-400); Red Blood Count 2.97 M/mcL (3.82-4.97); Red Cell Distribution Width 13.3 % (11.5-14.5); White Blood Count 10.3 K/mcL (4.3-11.1)
[2021-11-06 00:58] LABS: Albumin 3.1 g/dL (3.5-5.7); Albumin/Globulin Ratio 1.2 (1.1-2.2); Bilirubin,Total 1.1 mg/dL (0.3-1.0); Calcium 8.3 mg/dL (8.6-10.3); Globulin 2.5 g/dL (2.4-3.5); Potassium 3.4 mEq/L (3.5-5.1); Total Protein 5.6 g/dL (6.4-8.9)
[2021-11-06 00:59] LABS: Chol/HDL Ratio 2.8 (0-4.9)
[2021-11-06] MEDS: Acetaminophen 325 MG TABLET PO PRN (01:43)
[2021-11-06] MEDS ORDERED: tiZANidine 4 MG TABLET PO ONE (03:10)
[2021-11-06] MEDS: Aspirin 81 MG TAB.CHEW PO SCH (09:12)
[2021-11-06] MEDS: Insulin LISPRO 300 UNITS/3 ML VIAL SUBQ SCH ×4 (09:13→20:27)
[2021-11-06] MEDS: Pantoprazole 40 MG VIAL IVP SCH (09:20)
[2021-11-06] MEDS: *HR* Rivaroxaban 15 MG TABLET PO SCH (17:05)
[2021-11-07] MEDS: Acetaminophen 325 MG TABLET PO PRN (00:02)
[2021-11-07 03:12] LABS: Basophils % 0.3 %; Eosinophils # 0.1 K/mcL (0.0-0.6); Eosinophils % 1.8 %; Hematocrit 24.6 % (35.3-44.9); Immature Granulocytes % 0.6 % (0-4); Lymphocytes # 0.7 K/mcL (0.6-4.6); Lymphocytes % 8.7 %; Mean Corpuscular HGB Conc 32.5 g/dL (31.6-35.5); Mean Corpuscular Hemoglobin 28.3 pg (28.0-33.3); Mean Corpuscular Volume 86.9 fL (83.0-100.0); Mean Platelet Volume 10.6 fL (9.4-12.4); Monocytes # 0.8 K/mcL (0.0-1.3); Monocytes % 9.9 %; Neutrophils # 6.1 K/mcL (1.6-8.9); Platelet Count 237 K/mcL (140-400); Red Blood Count 2.83 M/mcL (3.82-4.97); Red Cell Distribution Width 13.3 % (11.5-14.5); Segmented Neutrophils % 78.7 %; White Blood Count 7.8 K/mcL (4.3-11.1)
[2021-11-07 03:37] LABS: Calcium 8.1 mg/dL (8.6-10.3); Potassium 3.7 mEq/L (3.5-5.1)
[2021-11-07] MEDS: Insulin LISPRO 300 UNITS/3 ML VIAL SUBQ SCH ×4 (07:43→20:42)
[2021-11-07] MEDS: Pantoprazole 40 MG VIAL IVP SCH (09:52)
[2021-11-07] MEDS: Aspirin 81 MG TAB.CHEW PO SCH (09:52)
[2021-11-07] MEDS: *HR* Rivaroxaban 15 MG TABLET PO SCH (17:18)
[2021-11-08] MEDS: Aspirin 81 MG TAB.CHEW PO SCH (08:28)
[2021-11-08] MEDS: Pantoprazole 40 MG VIAL IVP SCH (08:28)
[2021-11-08] MEDS: Insulin LISPRO 300 UNITS/3 ML VIAL SUBQ SCH ×2 (08:29→11:59)
[2021-11-08 09:59] VITALS: PULSE 60
[2021-11-08 10:26] VITALS: BP 149/74; TEMP 98.1; O2SAT 94
[2021-11-08 11:58] LABS: Adenovirus Not Detected (Not Detect); Bordetella Pertussis Not Detected (Not Detect); Chlamydophila pneumoniae Not Detected (Not Detect); Coronavirus 229E Not Detected (Not Detect); Coronavirus HKU1 Not Detected (Not Detect); Coronavirus NL63 Not Detected (Not Detect); Coronavirus OC43 Not Detected (Not Detect); Human Metapneumovirus Not Detected (Not Detect); Human Rhinovirus/Enterovirus Not Detected (Not Detect); Influenza A Subtype 2009 H1 Not Detected (Not Detect); Influenza B Not Detected (Not Detect); Mycoplasma pneumoniae Not Detected (Not Detect); Parainfluenza Virus 1 Not Detected (Not Detect); Parainfluenza Virus 2 Not Detected (Not Detect); Parainfluenza Virus 3 Not Detected (Not Detect); Parainfluenza Virus 4 Not Detected (Not Detect); Respiratory Syncytial Virus Not Detected (Not Detect); SARS-CoV-2 Not Detected (Not Detect)
== END 2021-11-08 14:15 | DRG 281 ==
LOC: EMEROOARM 10:36 → 3BNU 10:36
PROVIDERS: ADMIT Student in an Organized Health Care Education/Training Program; ATTEND Student in an Organized Health Care Education/Training Program